=== PATIENT | male | born 1965 | race Two or more races ===

== ENCOUNTER → 2016-11-20 | Outpatient (CLI) | payer OTHER ==
--- NOTE | 2016-11-21 08:15 | CONS ---
DATE OF CONSULT: 11/20/16 HISTORY OF PRESENT ILLNESS/SLEEP WAKE EVALUATION: 51 year old gentleman has been evaluated in the [facility] for possible obstructive sleep apnea/ hypopnea syndrome. SLEEP SCHEDULE: On working days from midnight until 6 a.m. and on the weekend around midnight to 9 or 10 a.m. FALLING ASLEEP: Sometimes he has problems with falling asleep. Has t.v. set in bedroom. DURING SLEEP: He snores and has episodes of stopped breathing during the sleep according to his . he wakes up with grinding teeth, gasping for air, restless legs two times per night and up to two episodes of nocturia during the night. Positive history of vivid dreams. DURING THE DAY/WAKE STATE: In the morning, he wakes up tired, falling asleep during the day. [place] sleep scale increased to 10. Positive history of vivid dreams during the naps. Also he usually takes naps in around 1 to 2 p.m. during the day. Medications: Lisinopril. PAST MEDICAL HISTORY: Positive for hypertension. Past surgical history: None. FAMILY HISTORY: Hypertension, asthma. Snoring, mental illness, restless legs. Prostate cancer in his father. SOCIAL HISTORY: REVIEW OF SYSTEMS: No fevers. No double vision. No recent chest pain. No shortness of breath. No abdominal pain. No bleeding episodes. No blood in urine. No seizure episodes. PHYSICAL EXAM: GENERAL: A pleasant 51 year old gentleman patient without any distress. VITAL SIGNS: BP 116/80, HR 68, RR 16, height 6 feet tall, weight 237.4, body mass index 32.1. Neck 16.5 inches in circumference. Oxygen saturation 96%. HEENT: PERRLA, EOMI. Evaluation of oropharynx shows moderately low soft palate. Tongue protrudes midline. NECK: Supple. No JVD. Thyroid is not palpable. LUNGS: Clear to auscultation and percussion. Good air exchange. No wheezing or rhonchi. HEART: S1, S2 regular. No murmurs, gallops or rubs. ABDOMEN: Soft, nontender. Bowel sounds are preset. No organomegaly appreciated. EXTREMITIES: No clubbing or cyanosis. AUTO RADIATOR SPECIALIST: Awake, alert and oriented times three. Cranial nerves 2 to 7 intact. There is no fasciculation or atrophy noted. No focal deficits observed. IMPRESSION: 1. Snoring, witnessed episodes of stopped breathing during the sleep, multiple awakenings from sleep, sleepiness during the day, obstructive sleep apnea/ hypopnea syndrome. 2. Hypertension. 3. Mild obesity. PLAN: 1. Polysomnography for evaluation of patients breathing during sleep. 2. CPAP/BIPAP titration if sleep study confirms obstructive sleep apnea/ hypopnea syndrome. 3. Preferable position during sleep in the side. 4. No driving if patient feels any sleepiness. Patient is aware of civil and criminal liability for unsafe driving. 5. I will see the patient for follow-up visit to explain the results of the testing and following plan. Thank you for referring this patient for consultation. Sincerely, Solomon De MD, PhD, FAASM Diplomat of [place] [employer]. Sleep Medicine Board by [place] [employer] [place] [employer] [facility] [place] [facility] [place] [facility]
== END | disposition home or self-care (01) ==
LOC: SLEEP 15:18
PROVIDERS: ATTEND Internal Medicine
DX: G47.33 Obstructive sleep apnea (adult) (pediatric) (principal); I10 Essential (primary) hypertension; E66.9 Obesity, unspecified
CPT/HCPCS: 99211

== ENCOUNTER → 2017-04-30 | Outpatient (CLI) | payer OTHER ==
--- NOTE | 2017-04-30 17:40 | PN ---
PROGRESS NOTE DATE OF SERVICE: 04/30/2017 This patient is a 51-year-old gentleman who has been followed in the sleep center for treatment of obstructive sleep apnea/hypopnea syndrome. Recently patient had a polysomnogram and CPAP titration, and I discussed the results of sleep studies with the patient in detail. He has moderate obstructive sleep apnea/hypopnea syndrome, which was corrected with CPAP with a pressure of 14 cm of water. Subsequently patient was started on treatment with CPAP and today he came for his first follow-up visit while he is on CPAP. The patient is able to use his CPAP equipment, and he feels better with the machine. [place] Sleepiness Scale today is 6. I checked his CPAP unit. For the 2 months, the patient used it 53 nights out of 60 nights and 42 out of 60 nights for more than 4 hours. Average usage is was 5.6 hours. CPAP pressure is 14 cm of water. RAMP is an automatic regimen. Leak is quite significant at 47 L/minute. Apnea/hypopnea index is only 0.6, which is perfect. The patient is using a nasal pillow mask, but it is sometimes not in a comfortable position on his nose, and he has leaking. MEDICATIONS: Lisinopril. PHYSICAL EXAMINATION: Patient in no distress. VITAL SIGNS: BP 134/62, HR 81, RR 16, weight 242.0, temperature 98.0, oxygen saturation on room air 97%. HEENT: PERRLA, EOMI. Evaluation of oropharynx showed tongue protrudes midline; low position of soft palate. NECK: Supple. No JVD. Thyroid is not palpable. LUNGS: Clear to percussion and to auscultation. Good air exchange. No wheezing or rhonchi. HEART: S1, S2 regular. No murmurs, gallops or rubs. ABDOMEN: Slightly obese. Soft and nontender. Bowel sounds are present. No organomegaly appreciated. EXTREMITIES : No clubbing or cyanosis. PRESIDENT AND CEO: Awake, alert, and oriented X3. Cranial nerves 2 to 7 intact. There is no fasciculation or atrophy. noted. No focal deficits observed. IMPRESSION: 1. Moderate obstructive sleep apnea/hypopnea syndrome; apnea/hypopnea index 20.4 with oxygen desaturation to 75%, under full control with CPAP at 14 cm of water. Patient has demonstrated good compliance with treatment, benefitting from treatment. 2. Mild obesity. 3. Hypertension. PLAN: 1. Patient was fitted with a Smith FX nasal pillow mask which is a different style of the mask, and is more stable on the face. 2. Continue to use CPAP equipment every night. 3. Watching and losing weight. 4. Sleep hygiene with regular time in bed for at least 8 hours. 5. No driving if feeling any sleepiness. Thank you very much for allowing me to participate in the management of the patient. Sincerely, Solomon De MD, PhD, FAASM Diplomat of [place] [facility] [place] MMODL / IJN: [id number] /
== END | disposition home or self-care (01) ==
LOC: SLEEP 14:29
PROVIDERS: ATTEND Internal Medicine
DX: G47.33 Obstructive sleep apnea (adult) (pediatric) (principal); E66.9 Obesity, unspecified; I10 Essential (primary) hypertension; Z79.899 Other long term (current) drug therapy; Z99.89 Dependence on other enabling machines and devices

== ENCOUNTER 2017-05-29 07:42 | Day surgery (SDC) | payer OTHER ==
[2017-05-27 11:43] VITALS: BMI 31.1
[~2017-05-29 07:42] MED LIST: LACTATED RINGERS 1,000 ML IV SCH
[2017-05-29 09:07] VITALS: RESP 16; TEMP 97.7
--- NOTE | 2017-05-29 09:28 | P.GSHP ---
History of Present Illness H&P Date: 05/29/17 Chief Complaint: Screening colonoscopy This a 51-year-old male referred from Dr. Verónica kraft. Patient presents for screening colonoscopy. He denies a significant GI complaints. Past Medical History Past Medical History: Hypertension Additional Past Medical History / Comment(s): STERIOD USE IN APR 2017 History of Any Multi-Drug Resistant Organisms: None Reported Additional Past Surgical History / Comment(s): COLONOSCOPY Past Anesthesia/Blood Transfusion Reactions: No Reported Reaction Smoking Status: Never smoker - Past Family History Father Family Medical History: Cancer Medications and Allergies Home Medications Medication Instructions Recorded Confirmed Type Lisinopril [Zestril] 5 mg PO DAILY 05/27/17 05/29/17 History Allergies Allergy/AdvReac Type Severity Reaction Status Date / Time No Known Allergies Allergy Verified 05/29/17 08:01 Surgical - Exam Vital Signs Temp Pulse Resp BP Pulse Ox 97.7 F 79 16 158/82 98 05/29/17 09:06 05/29/17 09:06 05/29/17 09:06 05/29/17 09:06 05/29/17 09:06 - General well developed, no distress - Eyes PERRL - ENT normal pinna - Neck no masses - Respiratory normal expansion - Cardiovascular Rhythm: regular - Abdomen Abdomen: soft, non tender Assessment and Plan Assessment: We'll perform screening colonoscopy
--- NOTE | 2017-05-29 09:46 | P.OP ---
Date of Procedure: 05/29/17 Preoperative Diagnosis: Screening colonoscopy Postoperative Diagnosis: Normal colon Procedure(s) Performed: Colonoscopy Anesthesia: MAC Surgeon: Bruce Olguin Pathology: none sent Condition: stable Disposition: PACU Description of Procedure: PROCEDURE: The patient was placed on the endoscopy table in the lateral position. Digital rectal examination was performed which revealed no abnormalities. The prostate was symmetrical without nodules. Flexible colonoscope was then placed in the patient's anus and passed throughout the entire colon. The ileocecal valve was visualized. The cecum, ascending, transverse, descending and sigmoid colon were normal. The rectum was normal as well. There were no masses, polyps or diverticula noted in the entire colon. SUMMARY OF FINDINGS: Normal colonoscopy.
[2017-05-29 10:01] VITALS: BP 111/73; PULSE 53
== END 2017-05-29 10:19 | disposition home or self-care (01) ==
LOC: ORWHC2ENDO 07:42
PROVIDERS: ATTEND Surgery
DX: Z12.11 Encounter for screening for malignant neoplasm of colon (principal); I10 Essential (primary) hypertension; Z79.899 Other long term (current) drug therapy
CPT/HCPCS: 45378